=== PATIENT | male | born 1970 | race Caucasian/White ===

== ENCOUNTER 2022-08-02 12:26 | Outpatient (CLI) | payer MEDICARE, MEDICAID, SELFPAY ==
--- NOTE | 2022-08-02 12:43 | XR_ITS ---
WS: [id number] XR knee LT 3V* [id number] REASON FOR EXAM: PAIN IN LEFT KNEE FINDINGS: No fracture or focal bone lesion. The joint spaces of the left knee are intact and relatively well-preserved. No soft tissue abnormality. XR/XR knee LT 3V* [id number] IMPRESSION: No significant abnormality.
== END 2022-08-02 12:27 | disposition home or self-care (01) ==
LOC: RAD 12:31
PROVIDERS: PCP Family Medicine; Visit Provider Family Medicine
DX: M25.562 Pain in left knee (principal)
CPT/HCPCS: 73562

== ENCOUNTER 2022-09-04 15:38 | Outpatient (CLI) | payer MEDICARE, MEDICAID, SELFPAY ==
--- NOTE | 2022-09-04 | MR_ITS ---
WS: [id number] MRI LEFT KNEE NONCONTRAST TECHNIQUE: Axial PD, coronal PD fat sat, coronal PD, sagittal PD, and sagittal PD fat-sat images obta ined. CLINICAL INFORMATION: KNEE PAIN COMPARISON: None. FINDINGS: Distal quadriceps and patella tendons are intact. Normal ACL and PCL. Normal medial and lateral meniscus. No acute appearing meniscal tears. Normal med ial and lateral patellar retinaculum. Mild chondromalacia patella. No significant joint effusion. Nor mal popliteal fossa. Normal medial and lateral collateral ligaments. Slight chondral fissuring along the medial patella facet. No subchondral edema. MR/MR knee LT wo con* [id number] IMPRESSION: 1. Normal ACL and PCL. 2. Normal medial and lateral meniscus. No acute appearing meniscal tears. 3. Mild chondromalacia patella with chondral fissuring along the medial patell a facet. No subchondral edema. 4. No other acute findings. Outbridge grading: grade II: blister-like swelling/fraying of articular cartila ge extending to surface
== END 2022-09-04 15:39 | disposition home or self-care (01) ==
LOC: RAD 15:39
PROVIDERS: PCP Family Medicine; Visit Provider Family Medicine
DX: M22.42 Chondromalacia patellae, left knee (principal)
CPT/HCPCS: 73721

== ENCOUNTER 2022-11-06 08:14 | Outpatient (CLI) | payer MEDICARE, MEDICAID, SELFPAY ==
--- NOTE | 2022-11-06 08:28 | XR_ITS ---
WS: [id number] XR lumbar spine f/e only [id number] REASON FOR EXAM: CHRONIC BACK PAIN FINDINGS: Mildly exaggerated lordotic curve of the lumbar spine. Normal lumbar vertebral bodies. Intervertebral disc spaces relatively well-preserved. Minimal degenerative changes in the facet joints L3-S1. No significant listhesis. No abnormal vertebral body movement with flexion or extension. XR/XR lumbar spine f/e only [id number] IMPRESSION: Minimal change of degenerative spondylosis as above.
== END 2022-11-06 08:15 | disposition home or self-care (01) ==
LOC: RAD 08:21
PROVIDERS: PCP Family Medicine; Visit Provider Family Medicine
DX: M54.50 Low back pain, unspecified (principal); M47.896 Other spondylosis, lumbar region
CPT/HCPCS: 72120

== ENCOUNTER 2023-01-03 14:52 | Outpatient (CLI) | payer MEDICARE, MEDICAID, SELFPAY ==
--- NOTE | 2023-01-03 | MR_ITS ---
WS: [id number] MRI LUMBAR SPINE NONCONTRAST HISTORY: CHRONIC BACK PAIN COMPARISON: Radiograph 11/06/2022 TECHNIQUE: Sagittal and axial multisequence imaging is submitted. Cervical stenosis at C3-4 due to disc and facet disease. Normal lumbar alignment with no compression fractures or marrow edema. Mild disc desiccation at L4-5 and L5-S1. Conus terminates normally at L1-2 disc level. L1-L2: Moderate central disc protrusion does not appear to be contacting the nerve roots but is obscu red and limited by extensive motion artifact. On the sagittal imaging the disc may extend inferior to the disc level. No contact on the nerve roots. L2-L3: Significantly limited by motion. No stenosis. L3-L4: Significantly limited by extensive motion. No stenosis. L4-L5: Limited by motion. Annular disc bulging with a small central disc protrusion. Disc extends int o the neural foramina and there is mild contact on the exiting nerve roots but no displacement. Mild bilateral foraminal narrowing, LEFT greater than RIGHT. L5-S1: Mild disc bulging. Mild facet and ligamentum flavum hypertrophy. Very mild RIGHT foraminal celestina rowing. MR/MR lumbar spine wo con* [id number] IMPRESSION: 1. Quality of this examination is significantly limited by motion. 2. Moderate central disc protrusion at L1-2 does not appear to contact the ner ve roots. 3. Mild bilateral foraminal stenosis at L4-5, LEFT greater than RIGHT. 4. Mild RIGHT foraminal narrowing at L5-S1.
== END 2023-01-03 14:53 | disposition home or self-care (01) ==
PROVIDERS: PCP Family Medicine; Visit Provider Family Medicine
DX: G89.29 Other chronic pain (principal); M51.26 Other intervertebral disc displacement, lumbar region; M48.061 Spinal stenosis, lumbar region without neurogenic claudication; M48.07 Spinal stenosis, lumbosacral region
CPT/HCPCS: 72148